=== PATIENT | male | born 1950 | race Hispanic/Latino ===

== ENCOUNTER 2024-03-25 09:44 | Inpatient (IN) | payer MEDICARE ==
[2024-03-22 10:18] LABS: BASOPHILS % 0.5 % (0.0-1.0); EOSINOPHILS # (AUTO) 0.2 (0.0-0.4); EOSINOPHILS % 1.9 % (0.0-6.0); HEMATOCRIT 33.6 % (38.2-49.6); HEMOGLOBIN 10.8 g/dL (14.0-18.0); LYMPHOCYTES # (AUTO) 1.6 (1.0-3.2); LYMPHOCYTES % 20.7 % (18.0-39.1); MEAN CORPUSCULAR HEMOGLOBIN 33.6 pg (28-32); MEAN CORPUSCULAR HGB CONC 32.1 g/dL (31-35); MEAN CORPUSCULAR VOLUME 104.7 fL (81-99); MONOCYTES # (AUTO) 0.6 (0.2-0.8); MONOCYTES % 6.9 % (4.4-11.3); NEUTROPHILS # (AUTO) 5.5 (2.1-6.9); NEUTROPHILS % 69.7 % (38.7-80.0); PLATELET COUNT 213 x10e3/uL (140-360); RED BLOOD COUNT 3.21 x10e6/uL (4.3-5.7); RED CELL DISTRIBUTION WIDTH 12.1 % (11.7-14.4); WHITE BLOOD COUNT 7.93 x10e3/uL (4.8-10.8)
[2024-03-22 10:25] LABS: INR 0.89; PROTHROMBIN TIME 12.6 seconds (11.9-14.5)
[2024-03-22 10:26] LABS: ALBUMIN 3.8 g/dL (3.5-5.0); ALBUMIN/GLOBULIN RATIO 1.4 (0.8-2.0); ANION GAP 15.3 mmol/L (8-16); BILIRUBIN,TOTAL 1.1 mg/dL (0.2-1.2); CALCIUM 9.1 mg/dL (8.4-10.2); CREATININE, SERUM 2.91 mg/dL (0.72-1.25); PARTIAL THROMBOPLASTIN TIME 24.6 seconds (23.8-35.5); POTASSIUM 4.3 mmol/L (3.5-5.1); TOTAL PROTEIN 6.6 g/dL (6.5-8.1)
[2024-03-25] VITALS (10 sets, daily range): BP systolic 128–169; BP diastolic 59–87; PULSE 54–85; RESP 0–18; TEMP 98–98.1; O2SAT 93–98
[~2024-03-25 09:44] MED LIST: BUMETANIDE1 MG PO; CLOPIDOGREL75 MG PO; CRESTOR40 MG PO; FERROUS SULFAT325 MG PO; GLIPIZIDE ER5 MG PO; HYDRALAZINE HC100 MG PO; LANTUS SC; LOSARTAN POTAS100 MG PO; METOPROLOL SUCC50 MG PO; NIFEDIPINE ER30 M1 PO; OZEMPIC0.25 MG/02 SC; POTASSIUM CHLO10 ME1 PO
[2024-03-25] MEDS: LACTATED RINGER'S 1,000 ML ONE (10:24)
[2024-03-25] MEDS: CEFAZOLIN SODIUM 2 GM ONE (10:25)
[2024-03-25] MEDS: DEXTROSE 5% 250ML 250 ML IV ONE ×2 (10:25→13:09)
[2024-03-25] MEDS ORDERED: LIDOCAINE HCL 2% LOCAL INJ 5 ML SDV VIAL INJ ONE (12:43)
[2024-03-25] MEDS ORDERED: ROCURONIUM BROMIDE 1 ML IV ONE ×3 (12:43→15:12)
[2024-03-25] MEDS ORDERED: SUCCINYLCHOLINE CHLORIDE 20 MG/ML 10ML VIAL ONE (12:43)
[2024-03-25] MEDS ORDERED: PROPOFOL IV EMULSION 10 MG/ML 20 ML VIAL ONE (12:45)
[2024-03-25] MEDS ORDERED: FENTANYL CITRATE/PF 100MCG/2 ML INJ ONE (12:46)
[2024-03-25] MEDS ORDERED: ACETAMINOPHEN 1000 MG/100 ML 100 ML IV ONE (12:55)
[2024-03-25] MEDS ORDERED: DEXAMETHASONE SOD PHOS INJ 4 MG/ML SDV ONE (14:02)
[2024-03-25] MEDS ORDERED: FAMOTIDINE 20 MG/2 ML VIAL IV ONE (14:02)
[2024-03-25] MEDS ORDERED: ONDANSETRON HCL INJ 2MG/ML 2ML 2 MG/ML VIAL ONE (14:02)
[2024-03-25] MEDS ORDERED: KETAMINE 50MG/5ML SYR ONE (14:15)
[2024-03-25] MEDS ORDERED: ONDANSETRON HCL INJ 2MG/ML 2ML 2 MG/ML VIAL IV PRN (14:30)
[2024-03-25] MEDS: SODIUM CHLORIDE 0.9% 250ML IRRIG IR SCH (14:30)
[2024-03-25] MEDS ORDERED: NALOXONE HCL INJ 0.4 MG/ML AMP IV PRN (14:30)
[2024-03-25] MEDS ORDERED: ACETAMINOPHEN 1000 MG/100 ML IV PRN (14:30)
[2024-03-25] MEDS ORDERED: DIPHENHYDRAMINE HCL INJ 50 MG/ML VIAL IM PRN (14:30)
[2024-03-25] MEDS ORDERED: SUGAMMADEX SODIUM 200 MG/2 ML VIAL IV ONE (14:38)
[2024-03-25] MEDS ORDERED: SEVOFLURANE INHAL SOLN 250 ML PEN BTL ONE (15:43)
[2024-03-25] MEDS ORDERED: LACTATED RINGER'S 1,000 ML ONE (16:02)
[2024-03-25] MEDS ORDERED: SODIUM CHLORIDE 0.9% 1000ML 1,000 ML ONE (16:02)
[2024-03-25] MEDS ORDERED: DEXTROSE 50% SYRINGE 50 ML IV PRN (16:45)
[2024-03-25 17:04] LABS: BASOPHILS % 0.2 % (0.0-1.0); EOSINOPHILS # (AUTO) 0.1 (0.0-0.4); HEMATOCRIT 28.1 % (38.2-49.6); HEMOGLOBIN 8.9 g/dL (14.0-18.0); LYMPHOCYTES # (AUTO) 1.4 (1.0-3.2); LYMPHOCYTES % 12.6 % (18.0-39.1); MEAN CORPUSCULAR HGB CONC 31.7 g/dL (31-35); MEAN CORPUSCULAR VOLUME 104.1 fL (81-99); MONOCYTES # (AUTO) 0.2 (0.2-0.8); MONOCYTES % 1.9 % (4.4-11.3); NEUTROPHILS # (AUTO) 9.4 (2.1-6.9); PLATELET COUNT 174 x10e3/uL (140-360); WHITE BLOOD COUNT 11.17 x10e3/uL (4.8-10.8)
[2024-03-25 17:20] LABS: ANION GAP 16.6 mmol/L (8-16); CALCIUM 7.8 mg/dL (8.4-10.2); CREATININE, SERUM 2.36 mg/dL (0.72-1.25); POTASSIUM 3.6 mmol/L (3.5-5.1)
[2024-03-25] MEDS: SODIUM CHLORIDE 0.9% 1000ML 1,000 ML IV SCH (18:03)
[2024-03-25] MEDS: HYDRALAZINE HCL 20 MG/ML VIAL IV PRN (18:16)
[2024-03-25] MEDS: INSULIN REGULAR, HUMAN 100 UNIT/1 ML SQ SCH (21:00)
[2024-03-26] VITALS (33 sets, daily range): BP systolic 126–189; BP diastolic 58–109; PULSE 66–100; RESP 11–21; TEMP 97.5–98; O2SAT 87–99
[2024-03-26 07:08] LABS: BASOPHILS % 0.1 % (0.0-1.0); HEMATOCRIT 26.4 % (38.2-49.6); LYMPHOCYTES % 9.2 % (18.0-39.1); MEAN CORPUSCULAR HEMOGLOBIN 33.5 pg (28-32); MEAN CORPUSCULAR HGB CONC 34.1 g/dL (31-35); MEAN CORPUSCULAR VOLUME 98.1 fL (81-99); MONOCYTES # (AUTO) 0.7 (0.2-0.8); MONOCYTES % 6.3 % (4.4-11.3); NEUTROPHILS # (AUTO) 8.7 (2.1-6.9); NEUTROPHILS % 83.9 % (38.7-80.0); PLATELET COUNT 186 x10e3/uL (140-360); RED BLOOD COUNT 2.69 x10e6/uL (4.3-5.7); RED CELL DISTRIBUTION WIDTH 12.3 % (11.7-14.4); WHITE BLOOD COUNT 10.32 x10e3/uL (4.8-10.8)
[2024-03-26 07:39] LABS: ANION GAP 18.2 mmol/L (8-16); CALCIUM 7.8 mg/dL (8.4-10.2); CREATININE, SERUM 2.46 mg/dL (0.72-1.25); POTASSIUM 4.2 mmol/L (3.5-5.1)
[2024-03-26] MEDS ORDERED: ONDANSETRON HCL INJ 2MG/ML 2ML 2 MG/ML VIAL IV PRN (08:45)
[2024-03-26] MEDS ORDERED: HYDRALAZINE HCL 20 MG/ML VIAL IV PRN (08:45)
[2024-03-26] MEDS: SODIUM BICARBONATE 8.4% VIAL 100 ML in DEXTROSE 5% 1,000 ML IV SCH (17:03)
[2024-03-26] MEDS: CLONIDINE HCL 0.2 MG/24 HR 1 EA PATCH TOP SCH (17:23)
[2024-03-26] MEDS: MORPHINE SULFATE 1 MG/ML 30ML PCA IV PRN (19:52)
[2024-03-27] VITALS (44 sets, daily range): BP systolic 121–181; BP diastolic 62–93; PULSE 73–101; RESP 0–23; TEMP 98–99.1; O2SAT 92–100
[2024-03-27 07:06] LABS: BASOPHILS % 0.3 % (0.0-1.0); EOSINOPHILS % 0.1 % (0.0-6.0); HEMATOCRIT 28.3 % (38.2-49.6); LYMPHOCYTES # (AUTO) 1.2 (1.0-3.2); LYMPHOCYTES % 15.8 % (18.0-39.1); MEAN CORPUSCULAR HGB CONC 31.8 g/dL (31-35); MEAN CORPUSCULAR VOLUME 103.7 fL (81-99); MONOCYTES # (AUTO) 0.7 (0.2-0.8); MONOCYTES % 8.7 % (4.4-11.3); NEUTROPHILS # (AUTO) 5.8 (2.1-6.9); NEUTROPHILS % 74.6 % (38.7-80.0); PLATELET COUNT 153 x10e3/uL (140-360); RED BLOOD COUNT 2.73 x10e6/uL (4.3-5.7); RED CELL DISTRIBUTION WIDTH 12.2 % (11.7-14.4); WHITE BLOOD COUNT 7.74 x10e3/uL (4.8-10.8)
[2024-03-27 07:40] LABS: ALBUMIN 2.7 g/dL (3.5-5.0); ALBUMIN/GLOBULIN RATIO 1.1 (0.8-2.0); ANION GAP 15.5 mmol/L (8-16); BILIRUBIN,TOTAL 0.6 mg/dL (0.2-1.2); CALCIUM 8.1 mg/dL (8.4-10.2); CREATININE, SERUM 2.38 mg/dL (0.72-1.25); POTASSIUM 3.5 mmol/L (3.5-5.1); TOTAL PROTEIN 5.1 g/dL (6.5-8.1)
[2024-03-27] MEDS: LOSARTAN POTASSIUM 100 MG TAB PO SCH (12:29)
[2024-03-27] MEDS: NIFEDIPINE CR 30 MG TAB PO SCH (12:29)
[2024-03-27] MEDS: SODIUM BICARBONATE 650 MG TAB PO SCH (17:53)
[2024-03-27] MEDS: SODIUM CHLORIDE 0.9% 1000ML 1,000 ML IV SCH (23:27)
[2024-03-28] VITALS (22 sets, daily range): BP systolic 134–166; BP diastolic 67–105; PULSE 61–106; RESP 10–27; TEMP 98–100.3; O2SAT 90–98
[2024-03-28 06:53] LABS: BASOPHILS % 0.3 % (0.0-1.0); EOSINOPHILS % 0.4 % (0.0-6.0); HEMATOCRIT 25.7 % (38.2-49.6); HEMOGLOBIN 8.7 g/dL (14.0-18.0); LYMPHOCYTES # (AUTO) 1.1 (1.0-3.2); LYMPHOCYTES % 15.1 % (18.0-39.1); MEAN CORPUSCULAR HEMOGLOBIN 33.2 pg (28-32); MEAN CORPUSCULAR HGB CONC 33.9 g/dL (31-35); MEAN CORPUSCULAR VOLUME 98.1 fL (81-99); MONOCYTES # (AUTO) 0.6 (0.2-0.8); MONOCYTES % 8.4 % (4.4-11.3); NEUTROPHILS # (AUTO) 5.6 (2.1-6.9); NEUTROPHILS % 75.4 % (38.7-80.0); PLATELET COUNT 156 x10e3/uL (140-360); RED BLOOD COUNT 2.62 x10e6/uL (4.3-5.7); RED CELL DISTRIBUTION WIDTH 12.5 % (11.7-14.4); WHITE BLOOD COUNT 7.48 x10e3/uL (4.8-10.8)
[2024-03-28 07:22] LABS: ANION GAP 16.3 mmol/L (8-16); CALCIUM 8.2 mg/dL (8.4-10.2); CREATININE, SERUM 2.33 mg/dL (0.72-1.25)
[2024-03-28 07:32] LABS: POTASSIUM 3.3 mmol/L (3.5-5.1)
[2024-03-28] MEDS ORDERED: ACETAMINOPHEN/CODEINE 300MG - 30MG TAB PO PRN (10:45)
[2024-03-28] MEDS: POTASSIUM CHLORIDE 20MEQ/100ML 200 ML IV ONE (11:29)
[2024-03-28] MEDS: SENNA-S TABLET PO SCH (16:41)
[2024-03-29] VITALS (11 sets, daily range): BP systolic 132–150; BP diastolic 67–82; PULSE 66–88; RESP 16–21; TEMP 98–99.7; O2SAT 92–98
[2024-03-29 07:58] LABS: BASOPHILS % 0.4 % (0.0-1.0); EOSINOPHILS # (AUTO) 0.2 (0.0-0.4); EOSINOPHILS % 4.1 % (0.0-6.0); HEMATOCRIT 25.3 % (38.2-49.6); HEMOGLOBIN 8.6 g/dL (14.0-18.0); LYMPHOCYTES # (AUTO) 1.1 (1.0-3.2); LYMPHOCYTES % 20.2 % (18.0-39.1); MEAN CORPUSCULAR HEMOGLOBIN 33.3 pg (28-32); MEAN CORPUSCULAR VOLUME 98.1 fL (81-99); MONOCYTES # (AUTO) 0.6 (0.2-0.8); MONOCYTES % 10.1 % (4.4-11.3); NEUTROPHILS # (AUTO) 3.6 (2.1-6.9); NEUTROPHILS % 64.5 % (38.7-80.0); PLATELET COUNT 164 x10e3/uL (140-360); RED BLOOD COUNT 2.58 x10e6/uL (4.3-5.7); RED CELL DISTRIBUTION WIDTH 12.4 % (11.7-14.4); WHITE BLOOD COUNT 5.63 x10e3/uL (4.8-10.8)
[2024-03-29 08:29] LABS: ANION GAP 13.4 mmol/L (8-16); CALCIUM 8.2 mg/dL (8.4-10.2); CREATININE, SERUM 2.02 mg/dL (0.72-1.25)
[2024-03-29 08:33] LABS: POTASSIUM 3.4 mmol/L (3.5-5.1)
[2024-03-29] MEDS ORDERED: Morphine 4mg INJECTION 4 MG/ML INJ IV PRN (09:00)
[2024-03-29] MEDS ORDERED: SENNA-S TABLET PO SCH (09:00)
[2024-03-29] MEDS ORDERED: MAGNESIUM HYDROXIDE 30 ML UDC PO PRN (09:00)
[2024-03-29] MEDS: METOPROLOL TARTRATE 50 MG TAB PO SCH (09:27)
[2024-03-29] MEDS: HYDROCODONE/APAP 10MG-325MG TAB PO PRN (12:59)
[2024-03-29] MEDS: HYDRALAZINE HCL 100 MG TABLET PO SCH (12:59)
[2024-03-29] MEDS: POTASSIUM CHLORIDE 20 MEQ TAB CR PO ONE (15:31)
[2024-03-30 05:17] VITALS: BP 154/74; PULSE 75; RESP 18; TEMP 98.6; O2SAT 97
[2024-03-30 07:36] VITALS: BP_SYST 146; BP_SYST 154; BP_DIAS 74; BP_DIAS 78; PULSE 84; RESP 18; TEMP 98.7; O2SAT 100; O2SAT 97
[2024-03-30 09:00] VITALS: BP 146/78; PULSE 84; RESP 18; TEMP 98.6; O2SAT 100
[2024-03-30] MEDS ORDERED: MAGNESIUM HYDROXIDE 30 ML UDC PO PRN (09:15)
[2024-03-30] MEDS: IRON SUCROSE 100 MG in SODIUM CHLORIDE 0.9% 100 ML IV SCH (10:21)
[2024-03-30 10:50] VITALS: PULSE 77; RESP 18; O2SAT 98
[2024-03-30 11:15] VITALS: BP 136/74; PULSE 69; RESP 18; TEMP 97.9; O2SAT 100
[2024-03-31] MEDS ORDERED: PANTOPRAZOLE SOD 40 MG TABEC PO SCH (07:30)
== END 2024-03-30 14:18 | disposition home or self-care (01) | DRG 657 ==
LOC: OR 09:44 → PACU V 14:25 → ICU 17:30 → MED/SURG 03-28 17:29
PROVIDERS: ADMIT Internal Medicine; ATTEND Internal Medicine
PROC: 0TT10ZZ Resection of Left Kidney, Open Approach (ICD-10-PCS; principal; 2024-03-25 13:48)
DX: C64.2 Malignant neoplasm of left kidney, except renal pelvis (principal); E87.20 Acidosis, unspecified; I69.354 Hemiplegia and hemiparesis following cerebral infarction affecting left non-dominant side; N17.9 Acute kidney failure, unspecified; I12.9 Hypertensive chronic kidney disease with stage 1 through stage 4 chronic kidney disease, or unspecified chronic kidney disease; E11.22 Type 2 diabetes mellitus with diabetic chronic kidney disease; N18.32 Chronic kidney disease, stage 3b; E11.319 Type 2 diabetes mellitus with unspecified diabetic retinopathy without macular edema; Z79.4 Long term (current) use of insulin; Z79.85 Long-term (current) use of injectable non-insulin antidiabetic drugs; Z79.84 Long term (current) use of oral hypoglycemic drugs; I70.1 Atherosclerosis of renal artery; D64.89 Other specified anemias; E87.8 Other disorders of electrolyte and fluid balance, not elsewhere classified; E78.00 Pure hypercholesterolemia, unspecified; N40.1 Benign prostatic hyperplasia with lower urinary tract symptoms; R39.14 Feeling of incomplete bladder emptying; M24.50 Contracture, unspecified joint; M21.922 Unspecified acquired deformity of left upper arm; E66.9 Obesity, unspecified; Z68.31 Body mass index [BMI] 31.0-31.9, adult; I25.2 Old myocardial infarction; Z79.899 Other long term (current) drug therapy; Z79.02 Long term (current) use of antithrombotics/antiplatelets
CPT/HCPCS: 36415; 71045; 71046; 80048; 80053; 82948; 83735; 85025; 85610; 85730; 86850; 86900; 86920; 88300; 88307; 88311; 93005; 93306; 94799; 96372; 99252; J0330; J0360; J0690; J1100; J1756; J2003; J2270; J2405; J2470; J3480; J7030; J7050; J7070